=== PATIENT | female | born 1990 | race Caucasian/White ===

== ENCOUNTER 2016-04-28 02:00 | Emergency (ER) | payer OTHER ==
[2016-04-28 02:34] VITALS: BP 117/73; PULSE 77; TEMP 98.3; BMI 22.8
[2016-04-28 03:12] LABS: BASOPHIL 0.5 % (0-2.0); EOSINOPHIL 0.9 % (0-4.5); MCH 32.1 pg (25.7-33.7); MCHC 33.9 g/dl (32.0-36.0); MEAN CELL VOLUME 94.7 fl (80-96); MEAN PLT VOLUME 9.4 fl (7.5-11.1); NEUTROPHILS 68.6 % (42.8-82.8); PLATELET COUNT 234 K/MM3 (134-434); RDW 12.6 % (11.6-15.6); WHITE BLOOD COUNT 7.1 K/mm3 (4.0-10.0)
--- NOTE | 2016-04-28 03:21 | PDOC ---
History of Present Illness - History of Present Illness Initial Comments: 04/28/16 04:12 Patient is a 26 year old female, G2/A1 (miscarriage 07/25), with significant medical hx of asthma and migraines who is presenting to the ED with abdominal pain and diarrhea since today. Patient reports that she was feeling morning sickness all day, with nausea but no vomiting, and began experiencing epigastric pain, abdominal cramping and diarrhea later in the evening. The patient denies any migraines or hx of abdominal involvement with her migraines. Patient denies any fever, chills, headache, chest pain, palpitations, shortness of breath, sore throat, nasal congestion, vaginal bleeding, vaginal discharge, blood/mucous in stool, or pain with defecation. Denies sick contacts. Tailer Off: Tigre Donaldson MD <Kristen Stephens - Last Filed: 04/28/16 04:12> <Twin Stein - Last Filed: 04/28/16 05:49> - General Chief Complaint: Vomiting/Diarrhea Stated Complaint: 11 WKS PREG, DIARRHEA, ABD PAIN Past History <Kristen Stephens - Last Filed: 04/28/16 04:12> - Past Medical History Asthma: Yes - Immunization History Immunization Up to Date: Yes - Psycho/Social/Smoking Cessation Hx Suicidal Ideation: No Smoking History: Never smoked Substance Use Type: None <Twin Stein - Last Filed: 04/28/16 05:49> - Past Medical History Allergies/Adverse Reactions: Allergies Allergy/AdvReac Type Severity Reaction Status Date / Time Sulfa (Sulfonamide Allergy Verified 04/28/16 02:33 Antibiotics) Home Medications: Ambulatory Orders Albuterol 0.083% Nebulizer Zoya [Ventolin 0.083%] 1 neb NEB QID PRN #1 vial 01/07 Loperamide HCl [Imodium -] 2 mg PO BID #14 capsule 04/28/16 Ondansetron [Zofran *Odt*] 8 mg SL TID PRN #20 od.tablet 04/28/16 Review of Systems - Review of Systems Comments:: 04/28/16 04:13 GENERAL/CONSTITUTIONAL: No fever or chills. No weakness. HEAD, EYES, EARS, NOSE AND THROAT: No change in vision. No ear pain or discharge. No sore throat. CARDIOVASCULAR: No chest pain or shortness of breath. RESPIRATORY: No cough, wheezing, or hemoptysis. GASTROINTESTINAL: Epigastric pain, abdominal cramping, nausea, diarrhea. No vomiting or constipation. GENITOURINARY: No dysuria, frequency, or change in urination. MUSCULOSKELETAL: No joint or muscle swelling or pain. No neck or back pain. SKIN: No rash NEUROLOGIC: No headache, vertigo, loss of consciousness, or change in strength/ sensation. <Kristen Stephens - Last Filed: 04/28/16 04:12> *Physical Exam - Vital Signs Last Vital Signs Temp Pulse Resp BP Pulse Ox 98.3 F 77 18 117/73 100 04/28/16 02:33 04/28/16 02:33 04/28/16 02:33 04/28/16 02:33 04/28/16 02:33 - Physical Exam Comments: 04/28/16 04:14 GENERAL: Awake, alert, and fully oriented, in no acute distress HEAD: No signs of trauma EYES: PERRLA, EOMI, sclera anicteric, conjunctiva clear ENT: Auricles normal inspection, hearing grossly normal, nares patent, oropharynx clear without exudates. Mildly dry mucosa NECK: Normal ROM, supple, no lymphadenopathy, JVD, or masses LUNGS: Breath sounds equal, clear to auscultation bilaterally. No wheezes, and no crackles HEART: Regular rate and rhythm, normal S1 and S2, no murmurs, rubs or gallops ABDOMEN: Gravid. No tenderness to suprapubic region bilaterally or lower quadrants, [place] sign negative, [place] point negative. Hypoactive bowel sounds. No guarding, no rebound. EXTREMITIES: Normal range of motion, no edema. No clubbing or cyanosis. No cords, erythema, or tenderness NEUROLOGICAL: Cranial nerves II through XII grossly intact. Normal speech, normal gait SKIN: Warm, Dry, normal turgor, no rashes or lesions noted. ENDOCRINE: No increased thirst. No abnormal weight change. HEMATOLOGIC/LYMPHATIC: No anemia, easy bleeding, or history of blood clots. ALLERGIC/IMMUNOLOGIC: No hives or skin allergy. <Kristen Stephens - Last Filed: 04/28/16 04:12> - Vital Signs Last Vital Signs Temp Pulse Resp BP Pulse Ox 98.3 F 77 18 117/73 100 04/28/16 02:33 04/28/16 02:33 04/28/16 02:33 04/28/16 02:33 04/28/16 02:33 <Twin Stein - Last Filed: 04/28/16 05:49> ED Treatment Course - LABORATORY CBC & Chemistry Diagram: 04/28/16 02:45 04/28/16 02:45 - ADDITIONAL ORDERS Additional order review: 04/28/16 02:45 RBC 3.73 MCV 94.7 MCHC 33.9 RDW 12.6 MPV 9.4 Neutrophils % 68.6 Lymphocytes % 23.1 D Monocytes % 6.9 Eosinophils % 0.9 Basophils % 0.5 <Kristen Stephens - Last Filed: 04/28/16 04:12> - LABORATORY CBC & Chemistry Diagram: 04/28/16 02:45 04/28/16 02:45 <Twin Stein - Last Filed: 04/28/16 05:49> Medical Decision Making - Medical Decision Making 04/28/16 05:47 This is a 26yo F with 11 weeks who presents with diffuse abdominal cramping and mild nausea. She has a normal evaluation other than mild abdominal discomfort and appearing mildly dehydrated. She will be given IVF and she has refused antiemetics. She is encouraged to follow up with the PMD within the next 24 hours and if there is any change to return to the ED immediately. She is given Rx for imodium and Zofran. <Twin Stein - Last Filed: 04/28/16 05:49> *DC/Admit/Observation/Transfer - Attestations Scribe Attestion: 04/28/16 04:16 Documentation prepared by Kristen Stephens, acting as certified medical aide for Twin Stein MD. <Kristen Stephens - Last Filed: 04/28/16 04:12> - Discharge Dispostion Admit: No Decision to Admit order Date/Time: 04/28/16 05:40 - Attestations Physician Attestion: 04/28/16 05:41 I, Dr. Twin Stein MD, attest that this document has been prepared under my direction and personally reviewed by me in its entirety. I further attest, that it accurately reflects all work, treatment, procedures and medical decision -making performed by me. <Twin Stein S - Last Filed: 04/28/16 05:49> Diagnosis at time of Disposition: Abdominal cramping - Discharge Dispostion Disposition: HOME Condition at time of disposition: Good - Prescriptions Prescriptions: Loperamide HCl [Imodium -] 2 mg PO BID #14 capsule Ondansetron [Zofran *Odt*] 8 mg SL TID PRN #20 od.tablet PRN Reason: Nausea - Referrals Referrals: Jaimee Clark [Primary Care Provider] - - Patient Instructions Additional Instructions: At this time, your symptoms are related likely to abdominal cramping, probably viral in nature; it is important for you to aggressively hydrate yourself and nutrition as tolerated and if this is any change otherwise in your symptoms, please return immediately to the ED. Please follow up with your relations manager today. It is probably a good idea for you to have an evaluation from a maternal medicine gaming host, which is something to discuss with your relations manager.
[2016-04-28 04:03] LABS: ANION GAP 9 (8-16); CALCIUM 8.3 mg/dL (8.5-10.1); CO2 25 mmol/L (21-32); CREATININE 0.5 mg/dL (0.55-1.02); GLUCOSE,RANDOM 94 mg/dL (74-106); SGOT/AST 16 U/L (15-37); SGPT/ALT 24 U/L (12-78)
[2016-04-28 04:05] LABS: ALK PHOS 65 U/L (45-117); BILIRUBIN,TOTAL 0.3 mg/dL (0.2-1.0); TOT PROT 6.7 g/dl (6.4-8.2)
[2016-04-28 05:20] LABS: URINE APPEARANCE CLEAR; URINE BILIRUBIN NEGATIVE (NEGATIVE); URINE BLOOD NEGATIVE (NEGATIVE); URINE COLOR LTYELLOW; URINE GLUCOSE (UA) NEGATIVE (NEGATIVE); URINE KETONE NEGATIVE (NEGATIVE); URINE LEUK ESTERASE NEGATIVE (NEGATIVE); URINE NITRITE NEGATIVE (NEGATIVE); URINE PROTEIN NEGATIVE (NEGATIVE); URINE UROBILINOGEN NEGATIVE E.U./dl (0.2-1.0)
[2016-04-28] MEDS ORDERED: ONDANSETRON 4 MG/2 ML VIAL IVPUSH ONE (05:32)
--- NOTE | 2016-04-28 13:56 | PDOC ---
[id number] 100 04/28/16 02:33 04/28/16 02:33 04/28/16 02:33 04/28/16 02:33 04/28/16 02:33 <Corinne Santiago - Last Filed: 04/28/16 13:55> - Vital Signs Last Vital Signs Temp Pulse Resp BP Pulse Ox 98.3 F 77 18 117/73 100 04/28/16 02:33 04/28/16 02:33 04/28/16 02:33 04/28/16 02:33 04/28/16 02:33 <Twin Stein - Last Filed: 05/04/16 06:56> ED Treatment Course - LABORATORY CBC & Chemistry Diagram: 04/28/16 02:45 04/28/16 02:45 - ADDITIONAL ORDERS Additional order review: Laboratory Results 04/28/16 04/28/16 04/28/16 04:40 02:45 02:45 Sodium 136 Potassium 3.5 Chloride 102 Carbon Dioxide 25 Anion Gap 9 BUN 10 Creatinine 0.5 L D Creat Clearance w eGFR > 60 Random Glucose 94 D Calcium 8.3 L Total Bilirubin 0.3 AST 16 D ALT 24 D Alkaline Phosphatase 65 Total Protein 6.7 Albumin 3.0 L Lipase 138 Beta HCG, Quant 78426.4 Urine Color Ltyellow Urine Appearance Clear Urine pH 7.0 Ur Specific [place] 1.013 Urine Protein Negative Urine Glucose (UA) Negative Urine Ketones Negative Urine Blood Negative Urine Nitrite Negative Urine Bilirubin Negative Urine Urobilinogen Negative Ur Leukocyte Esterase Negative 04/28/16 02:45 RBC 3.73 MCV 94.7 MCHC 33.9 RDW 12.6 MPV 9.4 Neutrophils % 68.6 Lymphocytes % 23.1 D Monocytes % 6.9 Eosinophils % 0.9 Basophils % 0.5 <Corinne Santiago - Last Filed: 04/28/16 13:55> - LABORATORY CBC & Chemistry Diagram: 04/28/16 02:45 04/28/16 02:45 - ADDITIONAL ORDERS Additional order review: 04/28/16 02:45 RBC 3.73 MCV 94.7 MCHC 33.9 RDW 12.6 MPV 9.4 Neutrophils % 68.6 Lymphocytes % 23.1 D Monocytes % 6.9 Eosinophils % 0.9 Basophils % 0.5 <Twin Stein - Last Filed: 05/04/16 06:56> Medical Decision Making - Medical Decision Making 05/04/16 06:56 ED Attending note: I was available, involved in the case with the mid level provider as needed and in a limited capacity. <EmilTwin Janae - Last Filed: 05/04/16 06:56> *DC/Admit/Observation/Transfer <Corinne Santiago - Last Filed: 04/28/16 13:55> <Twin Stein - Last Filed: 05/04/16 06:56> Diagnosis at time of Disposition: Abdominal cramping - Discharge Dispostion Disposition: HOME Condition at time of disposition: Improved - Prescriptions Prescriptions: Loperamide HCl [Imodium -] 2 mg PO BID #14 capsule Ondansetron [Zofran *Odt*] 8 mg SL TID PRN #20 od.tablet PRN Reason: Nausea - Referrals Referrals: Jaimee Clark [Primary Care Provider] - - Patient Instructions Printed Discharge Instructions: DI for Abdominal Pain-Adult Additional Instructions: At this time, your symptoms are related likely to abdominal cramping, probably viral in nature; it is important for you to aggressively hydrate yourself and nutrition as tolerated and if this is any change otherwise in your symptoms, please return immediately to the ED. Please follow up with your correctional food service supervisor today. It is probably a good idea for you to have an evaluation from a maternal medicine electroencephalograph technologist, which is something to discuss with your correctional food service supervisor. - Post Discharge Activity
== END 2016-04-28 05:58 | disposition home or self-care (01) ==
LOC: JER 02:00
DX: O26.891 Other specified pregnancy related conditions, first trimester (principal); R10.84 Generalized abdominal pain; Z3A.11 11 weeks gestation of pregnancy
CPT/HCPCS: 36415; 80053; 81003; 83690; 84702; 85025; 99281-25

== ENCOUNTER 2016-05-08 13:01 | Emergency (ER) | payer OTHER ==
[2016-05-08 13:07] VITALS: BP 132/83; PULSE 104; TEMP 98.1; BMI 21.0
[2016-05-08] MEDS ORDERED: SODIUM CHLORIDE 1,000 ML IV STA (13:29)
[2016-05-08] MEDS ORDERED: ONDANSETRON 4 MG/2 ML VIAL IVPUSH ONE (13:29)
[2016-05-08] MEDS ORDERED: ONDANSETRON 4 MG/2 ML VIAL ONE (13:40)
[2016-05-08 13:59] LABS: URINE APPEARANCE CLEAR; URINE BILIRUBIN NEGATIVE (NEGATIVE); URINE BLOOD NEGATIVE (NEGATIVE); URINE COLOR YELLOW; URINE GLUCOSE (UA) NEGATIVE (NEGATIVE); URINE KETONE TRACE (NEGATIVE); URINE LEUK ESTERASE NEGATIVE (NEGATIVE); URINE NITRITE NEGATIVE (NEGATIVE); URINE PROTEIN NEGATIVE (NEGATIVE); URINE UROBILINOGEN NEGATIVE E.U./dl (0.2-1.0)
[2016-05-08 14:20] LABS: BASOPHIL 0.4 % (0-2.0); EOSINOPHIL 0.8 % (0-4.5); MCH 32.4 pg (25.7-33.7); MCHC 34.2 g/dl (32.0-36.0); MEAN CELL VOLUME 94.7 fl (80-96); MEAN PLT VOLUME 9.3 fl (7.5-11.1); NEUTROPHILS 69.6 % (42.8-82.8); PLATELET COUNT 242 K/MM3 (134-434); RDW 12.5 % (11.6-15.6); WHITE BLOOD COUNT 6.9 K/mm3 (4.0-10.0)
[2016-05-08 15:09] LABS: ANION GAP 12 (8-16); BILIRUBIN,TOTAL 0.3 mg/dL (0.2-1.0); CALCIUM 7.9 mg/dL (8.5-10.1); CO2 23 mmol/L (21-32); CREATININE 0.6 mg/dL (0.55-1.02); GLUCOSE,RANDOM 99 mg/dL (74-106); MAGNESIUM 1.7 mg/dL (1.8-2.4); SGOT/AST 20 U/L (15-37); SGPT/ALT 25 U/L (12-78); TOT PROT 6.7 g/dl (6.4-8.2)
[2016-05-08 15:10] LABS: ALK PHOS 66 U/L (45-117)
--- NOTE | 2016-05-08 15:34 | PDOC ---
History of Present Illness - General Chief Complaint: Vomiting/Diarrhea Stated Complaint: (12 WKS ) SIDE PAIN Time Seen by Provider: 05/08/16 13:22 History Source: Patient Exam Limitations: No Limitations - History of Present Illness Travel History: No Initial Comments: 05/08/16 15:27 26-year-old currently 12 weeks presents with diarrhea yesterday after eating at a diner followed by upper abdominal cramping. Patient states after the episodes of diarrhea her symptoms subsided but then this morning when she had an episode of diarrhea she had bilateral flank cramping that subsided in route to the ER. Patient denies nausea presently, decreased urine output, urinary frequency, recent constipation, recent travel, recent illness. Patient states had an NET LEAD DEVELOPER appointment yesterday with an ultrasound which was normal. Patient denies medical history but does states has had decreased by mouth intake secondary to diarrhea since yesterday. Timing/Duration: reports: resolved prior to arrival, gone now Quality: reports: mild, cramping Abdominal Pain Onset Location: reports: flank Pain Radiation: reports: no radiation Aggravating Factors: improves with: Defecation Alleviating Factors: improves with: Defecation Past History - Past Medical History Allergies/Adverse Reactions: Allergies Allergy/AdvReac Type Severity Reaction Status Date / Time Sulfa (Sulfonamide Allergy Verified 05/08/16 13:07 Antibiotics) Home Medications: Ambulatory Orders Albuterol 0.083% Nebulizer Zoya [Ventolin 0.083%] 1 neb NEB QID PRN #1 vial 01/07 Loperamide HCl [Imodium -] 2 mg PO BID #14 capsule 04/28/16 Ondansetron [Zofran *Odt*] 8 mg SL TID PRN #20 od.tablet 04/28/16 Asthma: Yes Other medical history: migranes - Reproductive History Is Patient Now?: Yes - Immunization History Immunization Up to Date: Yes - Psycho/Social/Smoking Cessation Hx Suicidal Ideation: No Smoking History: Never smoked Information on smoking cessation initiated: No Hx Alcohol Use: No Drug/Substance Use Hx: No Substance Use Type: None Patient Lives Alone: No Lives with/in: parents Review of Systems - Review of Systems Able to Perform ROS?: Yes Constitutional: No: Symptoms Reported Respiratory: No: Symptoms reported Cardiac (ROS): No: Symptoms Reported ABD/GI: Yes: Diarrhea, Poor Fluid Intake, Abdominal cramping : No: Symptoms Reported Musculoskeletal: No: Symptoms Reported Integumentary: No: Symptoms Reported Neurological: No: Symptoms reported Hematologic/Lymphatic: No: Symptoms Reported *Physical Exam - Vital Signs Last Vital Signs Temp Pulse Resp BP Pulse Ox 98.1 F 104 H 18 132/83 99 05/08/16 13:05 05/08/16 13:05 05/08/16 13:05 05/08/16 13:05 05/08/16 13:05 - Physical Exam General Appearance: Yes: Nourished, Appropriately Dressed. No: Apparent Distress HEENT: positive: EOMI, [place]. negative: Pale Conjunctivae Neck: positive: Supple Respiratory/Chest: positive: Lungs Clear, Normal Breath Sounds. negative: Respiratory Distress, Accessory Muscle Use Cardiovascular: positive: Regular Rhythm, Tachycardia. negative: Murmur Gastrointestinal/Abdominal: positive: Normal Bowel Sounds, Soft. negative: Tenderness Musculoskeletal: negative: CVA Tenderness Extremity: positive: Normal Capillary Refill. negative: Pedal Edema Integumentary: positive: Normal Color, Warm, Moist ED Treatment Course - LABORATORY CBC & Chemistry Diagram: 05/08/16 13:52 05/08/16 13:52 - ADDITIONAL ORDERS Additional order review: Laboratory Results 05/08/16 05/08/16 13:52 13:30 Sodium 136 Potassium 3.6 Chloride 101 Carbon Dioxide 23 Anion Gap 12 BUN 10 Creatinine 0.6 Creat Clearance w eGFR > 60 Random Glucose 99 Calcium 7.9 L Magnesium 1.7 L Total Bilirubin 0.3 AST 20 D ALT 25 Alkaline Phosphatase 66 Total Protein 6.7 Albumin 3.0 L Urine Color Yellow Urine Appearance Clear Urine pH 6.0 Ur Specific [place] 1.019 Urine Protein Negative Urine Glucose (UA) Negative Urine Ketones Trace H Urine Blood Negative Urine Nitrite Negative Urine Bilirubin Negative Urine Urobilinogen Negative Ur Leukocyte Esterase Negative 05/08/16 13:52 RBC 3.58 L MCV 94.7 MCHC 34.2 RDW 12.5 MPV 9.3 Neutrophils % 69.6 Lymphocytes % 21.3 Monocytes % 7.9 Eosinophils % 0.8 Basophils % 0.4 - Medications Given in the ED: ED Medications Discontinued Medications Generic Name Dose Route Start Last Admin Trade Name Freq PRN Reason Stop Dose Admin Sodium Chloride 1,000 mls @ 1,000 mls/hr 05/08/16 13:29 05/08/16 13:50 Normal Saline - IV 05/08/16 14:28 1,000 mls/hr ASDIR STA Administration Ondansetron HCl 4 mg 05/08/16 13:29 05/08/16 13:51 Zofran Injection IVPUSH 05/08/16 13:30 4 mg ONCE ONE Administration Medical Decision Making - Medical Decision Making 05/08/16 14:36 Patient with poor by mouth intake since yesterday associated with abdominal cramping and diarrhea after eating at a diner. Patient on exam had no abdominal tenderness but was found to be tachycardic upon arrival. Patient ordered for labs, urine IV fluids, and we'll reevaluate. 05/08/16 15:37 Laboratory Tests 05/08/16 05/08/16 05/08/16 13:30 13:52 13:52 WBC 6.9 Hgb 11.6 Hct 33.9 Neutrophils % 69.6 Sodium 136 Potassium 3.6 Chloride 101 Carbon Dioxide 23 Anion Gap 12 BUN 10 Creatinine 0.6 Creat Clearance w eGFR > 60 Random Glucose 99 Total Bilirubin 0.3 ALT 25 Alkaline Phosphatase 66 Albumin 3.0 L Urine Ketones Trace H Urine Nitrite Negative Ur Leukocyte Esterase Negative Patient denies return of symptoms and requesting to be discharged. Patient be sent home and told to drink small amount of sips of fluids and bland food today *DC/Admit/Observation/Transfer Diagnosis at time of Disposition: Abdominal cramping Diarrhea Qualifiers: Diarrhea type: unspecified type Qualified Code(s): R19.7 - Diarrhea, unspecified - Discharge Dispostion Disposition: HOME Condition at time of disposition: Improved - Referrals Referrals: Jaimee Clark [Primary Care Provider] - - Patient Instructions Printed Discharge Instructions: DI for Diarrhea and Traveler's Diarrhea -- Adult Additional Instructions: Eat bland food today and have small sips of fluid frequently throughout the day. Please follow up with her RETAIL INVENTORY CONTROL CLERK as needed and return to ED if symptoms worsen or return
== END 2016-05-08 16:19 | disposition home or self-care (01) ==
LOC: JER 13:01
PROC: 3E033GC Introduction of Other Therapeutic Substance into Peripheral Vein, Percutaneous Approach (ICD-10-PCS; principal; 2016-05-08)
PROC: 3E0337Z Introduction of Electrolytic and Water Balance Substance into Peripheral Vein, Percutaneous Approach (ICD-10-PCS; 2016-05-08)
DX: O26.891 Other specified pregnancy related conditions, first trimester (principal); R10.9 Unspecified abdominal pain; R19.7 Diarrhea, unspecified; J45.909 Unspecified asthma, uncomplicated; Z3A.12 12 weeks gestation of pregnancy
CPT/HCPCS: 36415; 80053; 81003; 83735; 85025; 87086; 99282-25

== ENCOUNTER 2019-04-10 22:41 | Emergency (ER) | payer OTHER ==
[2019-04-10 22:54] VITALS: TEMP 98.5; BMI 18.3
[2019-04-11 00:04] LABS: URINE APPEARANCE CLEAR; URINE BILIRUBIN NEGATIVE (NEGATIVE); URINE COLOR DK YELLOW; URINE GLUCOSE (UA) NEGATIVE (NEGATIVE); URINE KETONE 1+ (NEGATIVE); URINE LEUK ESTERASE NEGATIVE (NEGATIVE); URINE NITRITE NEGATIVE (NEGATIVE); URINE PROTEIN TRACE (NEGATIVE)
[2019-04-11] MEDS ORDERED: SODIUM CHLORIDE 1,000 ML IV STA (00:23)
--- NOTE | 2019-04-11 00:31 | PDOC ---
Documentation entered by Marybel Erickson SCRIBE, acting as scribe for Shahida Rodriguez MD. Shahida Rodriguez MD: This documentation has been prepared by the larryibe, Marybel Erickson SCRIBE, under my direction and personally reviewed by me in its entirety. I confirm that the documentation accurately reflects all work, treatment, procedures, and medical decision making performed by me. Attending Attestation - Resident Resident Name: Lynnette Easton - ED Attending Attestation I have performed the following: I have examined & evaluated the patient, The case was reviewed & discussed with the resident, I agree w/resident's findings & plan, Exceptions are as noted - HPI HPI: 04/11/19 00:25 29-year-old female who is 4 para 1 presents with nausea and vomiting. She states that she was at [facility] about 2 weeks ago and had a pelvic ultrasound that established she had a IUP of 6 weeks Her CORK MOLDER will be at [facility] for follow-up - Physicial Exam PE: 04/11/19 02:00 Slender 29-year-old female presents with nausea and vomiting stating she is about 8 weeks Head normocephalic atraumatic oral dry mucus membranes Neck is supple Lungs are clear to auscultation bilaterally CVS is regular rate and rhythm S1-S2 Abdomen is flat nontender Skin warm and dry Extremities full range of motion, no extremity edema Neuro alert and oriented x3, ambulatory no gross focal neuro deficits - Medical Decision Making 04/13/19 00:42 pt d/c home
[2019-04-11] MEDS ORDERED: ONDANSETRON 4 MG/2 ML VIAL IVPB ONE (00:38)
--- NOTE | 2019-04-11 00:51 | PDOC ---
Documentation entered by Marybel Erickson SCRIBE, acting as scribe for Shahida Rodriguez MD. Shahida Rodriguez MD: This documentation has been prepared by the scribe, Marybel Erickson SCRIBE, under my direction and personally reviewed by me in its entirety. I confirm that the documentation accurately reflects all work, treatment, procedures, and medical decision making performed by me. History of Present Illness - General Chief Complaint: Nausea/Vomiting Stated Complaint: VOMITING/8WKS PREG Time Seen by Provider: 04/10/19 23:26 History Source: Patient Exam Limitations: No Limitations - History of Present Illness Initial Comments: 04/11/19 00:42 The patient is a 20-year-old female, currently 8 weeks , ) with a past medical history significant for asthma who presents to the emergency department with nausea and vomiting. The patient reports multiple episodes of nausea and vomiting. The patient reports following up at [facility] for the symptoms. Denies vaginal bleeding or pelvic cramping. The patient reports her OB /WEDDING COORDINATOR is in [place]. Past History - Past Medical History Allergies/Adverse Reactions: Allergies Allergy/AdvReac Type Severity Reaction Status Date / Time prednisone Allergy Verified 04/10/19 22:51 Sulfa (Sulfonamide Allergy Verified 04/10/19 22:51 Antibiotics) Home Medications: Ambulatory Orders Albuterol 0.083% Nebulizer Zoya [Ventolin 0.083%] 1 neb NEB QID PRN #1 vial 01/07 Cephalexin [Keflex] 500 mg PO BID #10 capsule MDD 2 Cap 12/15/16 Anemia: Yes Asthma: Yes COPD: No - Immunization History Immunization Up to Date: Yes - Psycho Social/Smoking Cessation Hx Smoking History: Never smoked Have you smoked in the past 12 months: No Hx Alcohol Use: No Drug/Substance Use Hx: No Substance Use Type: None Review of Systems - Review of Systems Able to Perform ROS?: Yes Comments:: 04/11/19 00:42 CONSTITUTIONAL: Absent: fever, chills, diaphoresis, generalized weakness, malaise, loss of appetite HEENT: Absent: rhinorrhea, nasal congestion, throat pain, throat swelling, difficulty swallowing, mouth swelling, ear pain, eye pain, visual Changes CARDIOVASCULAR: Absent: chest pain, syncope. RESPIRATORY: Absent: cough, shortness of breath. GASTROINTESTINAL: +nausea and vomiting. Absent: abdominal pain, diarrhea, constipation. Denies pelvic pain GENITOURINARY: Absent: vaginal bleeding, dysuria, frequency, urgency, hesitancy, hematuria, flank pain, genital pain MUSCULOSKELETAL: Absent: myalgia, arthralgia, joint swelling SKIN: Absent: rash, itching, pallor NEUROLOGIC: Absent: headache, paresthesias, dizziness, unsteady gait. *Physical Exam - Vital Signs Last Vital Signs Temp Pulse Resp BP Pulse Ox 98.5 F 129 H 20 125/89 99 04/10/19 22:51 04/10/19 22:51 04/10/19 22:51 04/10/19 22:51 04/10/19 22:51 - Physical Exam 04/11/19 00:44 GENERAL: Slender 20 year old female presents with nausea and vomiting. Well-appearing, well-nourished. No apparent distress. HEENT: Dry mucous membranes, cries with tears. Normocephalic, atraumatic. PERRL, EOM intact. CARDIOVASCULAR: Tachycardiac PULMONARY: Clear to auscultation bilaterally. ABDOMEN: Soft, flat, non-distended, non-tender. EXTREMITIES: No lower extremity edema. Normal ROM in all four extremities. No gross deformities. SKIN: Warm, dry. No rash NEUROLOGICAL: No gross/focal neurological deficits. ED Treatment Course - LABORATORY CBC & Chemistry Diagram: 04/11/19 01:40 04/11/19 01:40 - ADDITIONAL ORDERS Additional order review: Laboratory Results 04/10/19 23:55 Urine Color Dk yellow Urine Appearance Clear Urine pH 7.0 Ur Specific [place] 1.027 Urine Protein Trace Urine Glucose (UA) Negative Urine Ketones 1+ H Urine Blood Negative Urine Nitrite Negative Urine Bilirubin Negative Urine Urobilinogen 1.0 Ur Leukocyte Esterase Negative Medical Decision Making - Medical Decision Making 04/11/19 00:38 29-year-old female who is 4 para 1 presents with nausea and vomiting. She states that she was at [facility] about 2 weeks ago and had a pelvic ultrasound that established she had a IUP of 6 weeks Her HEEL SEAM RUBBER will be at [facility] for follow-up 04/11/19 00:51 she denies any pelvic cramping or pelvic bleeding 04/11/19 01:57 UA is negative for infection CBC does not show any leukocytosis or significant anemia Patient receiving IV fluids 04/11/19 01:57 Impression hyperemesis gravidarum Discharge - Discharge Information Problems reviewed: Yes Clinical Impression/Diagnosis: Hyperemesis gravidarum Condition: Stable Disposition: HOME - Follow up/Referral Referrals: Juliet Fernandes MD [Staff Physician] - Omega Hernandez MD [Staff Physician] - Boby Rose MD [Staff Physician] - Jaimee Clark [Primary Care Provider] - - Patient Discharge Instructions Patient Printed Discharge Instructions: DI for Vomiting -- Adult Additional Instructions: You were evaluated today in the ER for your vomiting. We performed labs which were normal and hydrated you. Please follow-up with HEEL SEAM RUBBER as discussed for further evaluation. Return to ER if any further difficulty tolerating food/ liquids, fevers, or other concerning symptoms. - Post Discharge Activity
[2019-04-11] MEDS ORDERED: ONDANSETRON 4 MG/2 ML VIAL ONE (00:58)
[2019-04-11 01:50] LABS: BASO % 0.5 % (0-2.0); EOS % 0.2 % (0-4.5); HEMOGLOBIN 11.7 GM/dL (10.7-15.3); LYMPH % 14.8 % (8-40); MCH 32.7 pg (25.7-33.7); MCHC 34.4 g/dl (32.0-36.0); MEAN CELL VOLUME 94.9 fl (80-96); NEUT % 78.5 % (42.8-82.8); PLATELET COUNT 287 K/MM3 (134-434); RBC 3.58 M/mm3 (3.60-5.2); WHITE BLOOD COUNT 7.2 K/mm3 (4.0-10.0)
[2019-04-11 02:28] LABS: ALBUMIN 3.1 g/dl (3.4-5.0); BILIRUBIN,TOTAL 0.5 mg/dL (0.2-1); BLOOD UREA NITROGEN 11.7 mg/dL (7-18); CREATININE 0.5 mg/dL (0.55-1.3)
[2019-04-11 02:29] LABS: POTASSIUM 3.7 mmol/L (3.5-5.1)
--- NOTE | 2019-04-11 02:37 | PDOC ---
*Physical Exam - Vital Signs Last Vital Signs Temp Pulse Resp BP Pulse Ox 98.5 F 95 H 18 125/89 100 04/10/19 22:51 04/11/19 02:21 04/11/19 02:21 04/10/19 22:51 04/11/19 02:21 ED Treatment Course - LABORATORY CBC & Chemistry Diagram: 04/11/19 01:40 04/11/19 01:40 - ADDITIONAL ORDERS Additional order review: Laboratory Results 04/11/19 04/10/19 01:40 23:55 Sodium 139 Potassium 3.7 Chloride 107 Carbon Dioxide 23 Anion Gap 8 BUN 11.7 Creatinine 0.5 L Est GFR (CKD-EPI)AfAm 151.59 Est GFR (CKD-EPI)NonAf 130.79 Random Glucose 91 Calcium 8.0 L Total Bilirubin 0.5 AST 18 ALT 21 Alkaline Phosphatase 61 Total Protein 7.0 Albumin 3.1 L Urine Color Dk yellow Urine Appearance Clear Urine pH 7.0 Ur Specific [place] 1.027 Urine Protein Trace Urine Glucose (UA) Negative Urine Ketones 1+ H Urine Blood Negative Urine Nitrite Negative Urine Bilirubin Negative Urine Urobilinogen 1.0 Ur Leukocyte Esterase Negative 04/11/19 01:40 RBC 3.58 L MCV 94.9 MCHC 34.4 RDW 13.0 MPV 9.0 D Neutrophils % 78.5 Lymphocytes % 14.8 D Monocytes % 6.0 Eosinophils % 0.2 Basophils % 0.5 - Medications Given in the ED: ED Medications Discontinued Medications Generic Name Dose Route Start Last Admin Trade Name Freq PRN Reason Stop Dose Admin Sodium Chloride 1,000 mls @ 1,000 mls/hr 04/11/19 00:23 04/11/19 00:59 Normal Saline - IV 04/11/19 01:22 1,000 mls/hr ASDIR STA Administration Ondansetron HCl 4 mg 04/11/19 00:38 04/11/19 00:59 Zofran Injection IVPB 04/11/19 00:39 4 mg ONCE ONE Administration Medical Decision Making - Medical Decision Making 04/11/19 02:[address] Rodriguez. Patient is a 29 yo female at 8 weeks gestation (IUP previously established) who presents for evaluation of N/V. Pat ient [facility] at [facility]. Receiving IV fluids at this time. 04/11/19 03:19 Patient labs grossly wnl as below. Patient exam improved and patient tolerating PO. Patient well appearing and will f/u w/ [facility]. Discharging to home. Discharge - Discharge Information Problems reviewed: Yes Clinical Impression/Diagnosis: Hyperemesis gravidarum Disposition: HOME - Follow up/Referral Referrals: Clarisa Clark-Hay Guido [Primary Care Provider] - Omega Hernandez MD [Staff Physician] - Boby Rose MD [Staff Physician] - Juliet Fernandes MD [Staff Physician] - - Patient Discharge Instructions Patient Printed Discharge Instructions: DI for Vomiting -- Adult Additional Instructions: You were evaluated today in the ER for your vomiting. We performed labs which were normal and hydrated you. Please follow-up with [facility] as discussed for further evaluation. Return to ER if any further difficulty tolerating food/liquids, fevers, or other concerning symptoms. - Post Discharge Activity
[2019-04-11 03:36] VITALS: BP 120/83; PULSE 89
--- NOTE | 2019-04-11 09:19 | EKG ---
Test Reason : Blood Pressure : / mmHG Vent. Rate : 088 BPM Atrial Rate : 088 BPM P-R Int : 124 ms QRS Dur : 082 ms QT Int : 368 ms P-R-T Axes : 068 065 046 degrees QTc Int : 445 ms NORMAL SINUS RHYTHM NORMAL ECG WHEN COMPARED WITH ECG OF 15-DEC-2016 15:53, T WAVE INVERSION NO LONGER EVIDENT IN INFERIOR LEADS NONSPECIFIC T WAVE ABNORMALITY NO LONGER EVIDENT IN ANTEROLATERAL LEADS Confirmed by Myles Gasca ([id number]) on 04/11/2019 9:18:50 AM Referred By: Confirmed By:Myles Gasca
== END 2019-04-11 03:42 | disposition home or self-care (01) ==
LOC: JER 22:41 → SUPCPDRO 22:41 → JER 04-11 03:42
PROC: 3E033GC Introduction of Other Therapeutic Substance into Peripheral Vein, Percutaneous Approach (ICD-10-PCS; principal; 2019-04-10)
DX: O26.891 Other specified pregnancy related conditions, first trimester (principal); O21.0 Mild hyperemesis gravidarum; Z3A.08 8 weeks gestation of pregnancy; Z88.2 Allergy status to sulfonamides; Z88.8 Allergy status to other drugs, medicaments and biological substances; Z86.2 Personal history of diseases of the blood and blood-forming organs and certain disorders involving the immune mechanism; Z87.09 Personal history of other diseases of the respiratory system
CPT/HCPCS: 36415; 80053; 81003; 84702; 85025; 87086; 93005; 93010; 96374; 99284-25; J7030

== ENCOUNTER 2019-09-09 05:36 | Emergency (ER) | payer OTHER ==
--- NOTE | 2019-09-09 06:15 | PDOC ---
History of Present Illness - General Stated Complaint: CHEST DISCOMFORT Time Seen by Provider: 09/09/19 06:04 - History of Present Illness Initial Comments: 09/09/19 06:30 29 F 30 weeks presented to the ED with concern of SOB. She had SOB on a baseline since the , but it's getting a bit more difficult with breathing. She denies fever/chill/N/V/D/chest pain, unilat leg swelling/hx of blood clot/heart problems. PMHX: asthma. PSHX: none Meds: vitamin Allergies: prednisone, sulfa Tob: neg Etoh: neg Rec drugs:neg PCP: sun ROS GENERAL/CONSTITUTIONAL: No fever or chills. No weakness. HEAD, EYES, EARS, NOSE AND THROAT: No change in vision. No ear pain or discharge. No sore throat. CARDIOVASCULAR: No chest pain . +shortness of breath RESPIRATORY: No cough, wheezing, or hemoptysis. GASTROINTESTINAL: No nausea, vomiting, diarrhea or constipation. GENITOURINARY: No dysuria, frequency, or change in urination. MUSCULOSKELETAL: No joint or muscle swelling or pain. No neck or back pain. SKIN: No rash NEUROLOGIC: No headache, vertigo, loss of consciousness, or change in strength/sensation. ENDOCRINE: No increased thirst. No abnormal weight change HEMATOLOGIC/LYMPHATIC: No anemia, easy bleeding, or history of blood clots. ALLERGIC/IMMUNOLOGIC: No hives or skin allergy. PE GENERAL: Awake, alert, and fully oriented, in no acute distress HEAD: No signs of trauma, normocephalic, atraumatic EYES: PERRLA, EOMI, sclera anicteric, conjunctiva clear ENT: Auricles normal inspection, hearing grossly normal, nares patent, oropharynx clear without exudates. Moist mucosa NECK: Normal ROM, supple, no lymphadenopathy, JVD, or masses LUNGS: No distress, speaks full sentences, clear to auscultation bilaterally HEART: Regular rate and rhythm, normal S1 and S2, no murmurs, rubs or gallops, peripheral pulses normal and equal bilaterally. ABDOMEN: +. No guarding, no rebound. No masses EXTREMITIES : Normal inspection, Normal range of motion, no edema. No clubbing or cyanosis. NEUROLOGICAL: Cranial nerves II through XII grossly intact. Normal speech, normal gait, no focal sensorimotor deficits SKIN: Warm, Dry, normal turgor, no rashes or lesions noted Past History - Medical History Allergies/Adverse Reactions: Allergies Allergy/AdvReac Type Severity Reaction Status Date / Time prednisone Allergy Verified 04/10/19 22:51 Sulfa (Sulfonamide Allergy Verified 04/10/19 22:51 Antibiotics) Home Medications: Ambulatory Orders Albuterol 0.083% Nebulizer Zoya [Ventolin 0.083%] 1 neb NEB QID PRN #1 vial 01/07/14 Cephalexin [Keflex] 500 mg PO BID #10 capsule MDD 2 Cap 12/15/16 Anemia: Yes Asthma: Yes COPD: No - Immunization History Immunization Up to Date: Yes - Psycho-Social/Smoking History Smoking History: Never smoked Have you smoked in the past 12 months: No Medical Decision Making - Medical Decision Making 09/09/19 06:39 29 F 30 weeks presented to the ED with concern of SOB most likely physiology of . no unilat leg swelling, no hx of CHF, vital sign is completely normal ( no tachycardic, no hypoxia, no HTN) EKG is normal , vent rate 97, no ST elevation. normal sinus rhythm. Patient is stable to discharge, and recommenced to follow up with PCP for further concern. Discharge - Discharge Information Problems reviewed: Yes Clinical Impression/Diagnosis: Shortness of breath Condition: Stable Disposition: HOME - Admission No - Follow up/Referral Referrals: Jaimee Clark [Primary Care Provider] - - Patient Discharge Instructions Patient Printed Discharge Instructions: DI for Shortness of Breath Additional Instructions: You are here today for Shortness of breath. We didn't believe there is emergent causes that cause you to have shortness of breath except for physiology of . vital signs and EKG are completely normal. PLease follow up with your PCP for further problem. Please come back if you cannot breath, or have heaping, vaginal bleeding, abdominal pain, severe vomiting, heart palpitation. Please follow up with your OBGYN for further concern about the baby. - Post Discharge Activity
--- NOTE | 2019-09-09 06:21 | PDOC ---
Attending Attestation - Resident Resident Name: Dom Sylvester - ED Attending Attestation I have performed the following: I have examined & evaluated the patient, The case was reviewed & discussed with the resident, I agree w/resident's findings & plan, Exceptions are as noted - HPI HPI: 09/15/19 21:45 See resident HPI - Physicial Exam PE: 09/15/19 21:46 Agree with documented exam - Medical Decision Making 09/15/19 21:46 Dyspnea, +, non-hypoxic, no chest pain exam unremarkable dc home pcp/ob f/u Discharge - Discharge Information Problems reviewed: Yes Clinical Impression/Diagnosis: Shortness of breath Condition: Stable Disposition: HOME - Follow up/Referral Referrals: Jaimee Clark [Primary Care Provider] - - Patient Discharge Instructions Patient Printed Discharge Instructions: DI for Shortness of Breath Additional Instructions: You are here today for Shortness of breath. We didn't believe there is emergent causes that cause you to have shortness of breath except for physiology of . vital signs and EKG are completely normal. PLease follow up with your PCP for further problem. Please come back if you cannot breath, or have heaping, vaginal bleeding, abdominal pain, severe vomiting, heart palpitation. Please follow up with your OBGYN for further concern about the baby. - Post Discharge Activity
[2019-09-09 06:31] VITALS: BP 109/76; PULSE 88; TEMP 98.6; BMI 23.8
--- NOTE | 2019-09-14 13:01 | EKG ---
Test Reason : Blood Pressure : / mmHG Vent. Rate : 097 BPM Atrial Rate : 097 BPM P-R Int : 118 ms QRS Dur : 074 ms QT Int : 358 ms P-R-T Axes : 053 046 020 degrees QTc Int : 454 ms NORMAL SINUS RHYTHM NORMAL ECG WHEN COMPARED WITH ECG OF 11-APR-2019 00:50, NONSPECIFIC T WAVE ABNORMALITY NOW EVIDENT IN INFERIOR LEADS Confirmed by MD YANNI, ELISA ([id number]) on 09/14/2019 1:01:09 PM Referred By: Confirmed By:ELISA LIAO MD
== END 2019-09-09 07:05 | disposition home or self-care (01) ==
LOC: JER 05:36
DX: R06.02 Shortness of breath (principal)
CPT/HCPCS: 93005; 93010; 99282-25

== ENCOUNTER 2024-08-18 15:09 | Emergency (ER) | payer OTHER ==
[2024-08-18 15:29] VITALS: BP 119/78; PULSE 110; RESP 18; TEMP 102; BMI 20.1
[2024-08-18] MEDS ORDERED: ONDANSETRON *ODT* 4 MG TABLET ONE (15:35)
[2024-08-18] MEDS ORDERED: ACETAMINOPHEN 500 MG TABLET (FP) ONE (15:36)
[2024-08-18] MEDS: ONDANSETRON *ODT* 4 MG TABLET SL ONE (15:43)
[2024-08-18] MEDS: ACETAMINOPHEN 500 MG TABLET (FP) PO ONE (15:43)
[2024-08-18 15:57] LABS: EPI CELLS >36 /uL (0-25.1); HYALINE CASTS 2 /uL (0-3.1); URINE APPEARANCE CLEAR; URINE BACTERIA 142 /uL (0-1359); URINE BILIRUBIN NEGATIVE (NEGATIVE); URINE COLOR YELLOW; URINE GLUCOSE (UA) NEGATIVE (NEGATIVE); URINE KETONE 4+ (NEGATIVE); URINE LEUK ESTERASE NEGATIVE (NEGATIVE); URINE NITRITE NEGATIVE (NEGATIVE); URINE PROTEIN 1+ (NEGATIVE); URINE UROBILINOGEN 1.0 mg/dL (0.2-1.0); URINE WBC 15 /uL (0-25.8)
[2024-08-18 16:04] LABS: URINE RBC 57.7 /uL (0-23.9)
== END 2024-08-18 16:20 | disposition home or self-care (01) ==
LOC: JERFT 15:09
DX: R50.9 Fever, unspecified (principal); M79.10 Myalgia, unspecified site; R05.9 Cough, unspecified; R30.0 Dysuria; R11.2 Nausea with vomiting, unspecified
CPT/HCPCS: 71046-TC-FY; 81003; 84703; 87086; 87637-QW; 99284-25; Q0162

== ENCOUNTER 2024-08-18 23:16 | Emergency (ER) | payer OTHER ==
[2024-08-18 23:25] VITALS: TEMP 99.5; BMI 20.1
[2024-08-18] MEDS ORDERED: TRIMETHOBENZAMIDE HCL 200MG/2ML INJ IM ONE (23:53)
[2024-08-18] MEDS ORDERED: ACETAMINOPHEN INJECTION 100 ML ONE (23:53)
[2024-08-19] MEDS: LACTATED RINGERS SOLUTION 1000 ML INFUS.BAG IV ONE (00:11)
[2024-08-19] MEDS: TRIMETHOBENZAMIDE HCL 200MG/2ML INJ IM ONE (00:12)
[2024-08-19] MEDS: ACETAMINOPHEN 1000 MG/100 ML BAG IVPB ONE (00:12)
[2024-08-19 00:16] LABS: ABSOLUTE IMMATURE GRANULOCYTES 0.01 x10^3/uL (0.0-0.031); BASOPHILS # 0.01 x10^3/uL (0.01-0.08); EOSINOPHIL % 0.0 % (0.7-5.8); EOSINOPHILS # 0.00 x10^3/uL (0.04-0.36); MCHC 34.5 g/dl (32.2-35.5); MEAN CELL VOLUME 93.0 fl (79.4-94.8); MEAN PLT VOLUME 11.4 fl (9.4-12.3); MONOCYTE # 0.41 x10^3/uL (0.24-0.86); MONOCYTE % 10.0 % (4.7-12.5); RDW 11.9 % (12.1-16.8)
[2024-08-19 00:46] LABS: CO2 22.0 mmol/L (21-32); GLUCOSE,RANDOM 115.0 mg/dL (74-106)
[2024-08-19 00:49] LABS: CREATININE 0.9 mg/dL (0.55-1.3); SGOT/AST 20.0 U/L (15-37); SGPT/ALT 20.0 U/L (13-61)
[2024-08-19 00:51] LABS: TOT PROT 7.8 g/dl (6.4-8.2)
[2024-08-19 00:52] LABS: ALK PHOS 83.0 U/L (45-117)
[2024-08-19] MEDS ORDERED: METOCLOPRAMIDE HCL INJECTION 10 MG/2 ML VIAL ONE (01:07)
[2024-08-19] MEDS: METOCLOPRAMIDE HCL INJECTION 10 MG/2 ML VIAL IVPUSH ONE (01:12)
[2024-08-19 02:10] VITALS: BP 122/76; PULSE 90; RESP 18
== END 2024-08-19 02:11 | disposition home or self-care (01) ==
LOC: JER 23:16
PROC: 3E033NZ Introduction of Analgesics, Hypnotics, Sedatives into Peripheral Vein, Percutaneous Approach (ICD-10-PCS; principal; 2024-08-18)
PROC: 3E023GC Introduction of Other Therapeutic Substance into Muscle, Percutaneous Approach (ICD-10-PCS; 2024-08-18)
PROC: 3E033GC Introduction of Other Therapeutic Substance into Peripheral Vein, Percutaneous Approach (ICD-10-PCS; 2024-08-19)
DX: R11.2 Nausea with vomiting, unspecified (principal); R50.9 Fever, unspecified; R30.0 Dysuria; R53.81 Other malaise; R30.9 Painful micturition, unspecified
CPT/HCPCS: 36415; 80053; 83690; 83735; 84703; 85025; 99284-25